=== PATIENT | female | born 1940 | race Hispanic/Latino ===

== ENCOUNTER 2018-07-28 08:07 | Day surgery (SDC) | payer MEDICARE ==
[2018-07-28] MEDS ORDERED: SUBLIMAZE IV NR (08:31)
[2018-07-28] MEDS ORDERED: VERSED IV NR (08:31)
[2018-07-28] MEDS ORDERED: NACL 0.9% 500 ML 500 ML IV SCH (09:00)
[2018-07-28] MEDS ORDERED: HURRICAINE ONE 20% TOPICAL SPRAY MM NR (09:00)
--- NOTE | 2018-07-28 10:37 | Short Stay Summary ---
Short Stay Documentation Date of service: 07/28/18 - History H&P: obtained from office - Allergies and Medications Current Medications: Allergies No Known Allergies Allergy (Unverified 07/28/18 08:05) Home Medications Medication Instructions Recorded Confirmed Last Taken Type Aspirin [Adult Aspirin] 81 mg PO DAILY 07/28/18 07/28/18 07/27/18 History I TAB Meloxicam 15 mg PO DAILY 07/28/18 07/28/18 07/27/18 History 1 TAB Metoprolol [Lopressor TAB] 25 mg PO BID 07/28/18 07/28/18 07/27/18 History 1 tab Olmesartan/Hydrochlorothiazide 20 mg PO DAILY 07/28/18 07/28/18 07/27/18 History [Olmesartan-Hctz 20-12.5 mg Tab] 1 tab Simvastatin 20 mg PO DAILY 07/28/18 07/28/18 07/27/18 History 1 tab glipiZIDE XL [Glucotrol Xl] 2.5 mg PO DAILY 07/28/18 07/28/18 07/27/18 History 1 tab Active Medications Fentanyl (Sublimaze) 100 mcg IV ONCE NR Stop: 07/28/18 12:00 Sodium Chloride (Nacl 0.9% 500 Ml) 500 mls @ 50 mls/hr IV DIRECT SHELLI Last Admin: 07/28/18 09:55 Dose: 50 mls/hr Documented by: - Physical exam General appearance: no acute distress Integumentary: no rash HEENT: Atraumatic Lungs: Clear to auscultation Breasts: deferred Heart: Regular rate, Murmur Gastrointestinal: normal, normoactive bowel sounds Female Genitourinary: deferred Rectal Exam: deferred Extremities: no ischemia - Brief post op/procedure progress note Date of procedure: 07/28/18 Pre-op diagnosis: Aortic stenosis Post-op diagnosis: same Procedure: JENNI Anesthesia: MAC Findings: Severe Surgeon: LUPIS PEREZ Estimated blood loss: none Pathology: none Condition: stable - Hospital course Hospital course: Uneventful - Disposition Condition at discharge: Good Disposition: DC-01 TO HOME OR SELFCARE Short Stay Discharge Plan Activity: advance as tolerated Weight Bearing Status: Weight Bear as Tolerated Diet: low fat, low cholesterol, low salt Follow up with: ANG APARICIO MD [Primary Care Provider] - 7 Days
[2018-07-28 12:08] VITALS: BP 106/50
== END 2018-07-28 12:50 | disposition home or self-care (01) ==
LOC: CATHLABREC 08:07 → EDSTATUS 08:08 → CATHLABREC 12:50
PROVIDERS: ATTEND Internal Medicine
DX: I35.2 Nonrheumatic aortic (valve) stenosis with insufficiency (principal); I70.0 Atherosclerosis of aorta; R06.02 Shortness of breath; I10 Essential (primary) hypertension; M19.90 Unspecified osteoarthritis, unspecified site; F41.9 Anxiety disorder, unspecified; J44.9 Chronic obstructive pulmonary disease, unspecified; Z98.890 Other specified postprocedural states; Z79.82 Long term (current) use of aspirin; Z79.899 Other long term (current) drug therapy; Z87.891 Personal history of nicotine dependence; Z95.1 Presence of aortocoronary bypass graft; Z82.49 Family history of ischemic heart disease and other diseases of the circulatory system
CPT/HCPCS: 93312; 93320; 93325; J2250; J3010; J7040

== ENCOUNTER 2019-01-16 06:54 | Observation (INO) | payer MEDICARE ==
[2019-01-16] MEDS ORDERED: ECOTRIN PO NR (07:14)
[2019-01-16 07:48] LABS: Basophils # (Auto) 0.1 K/mm3 (0.0-0.1); Basophils % (Auto) 1.2 % (0.0-1.8); Eosinophils # (Auto) 0.5 K/mm3 (0.0-0.4); Hematocrit 36.1 % (30.3-42.9); Hemoglobin 12.1 gm/dl (10.1-14.3); Lymphocytes # (Auto) 1.5 K/mm3 (1.2-5.4); Lymphocytes % (Auto) 15.7 % (13.4-35.0); Mean Corpuscular HGB Conc 34 % (30-34); Mean Corpuscular Volume 90 fl (79-97); Monocytes # (Auto) 0.7 K/mm3 (0.0-0.8); Monocytes % (Auto) 6.7 % (0.0-7.3); Platelet Count 278 K/mm3 (140-440); Red Blood Count 4.03 M/mm3 (3.65-5.03); Red Cell Distribution Width 14.2 % (13.2-15.2)
[2019-01-16 07:59] LABS: INR 1.03 (0.87-1.13)
[2019-01-16] MEDS ORDERED: NACL 0.9% 500 ML 500 ML IV SCH (08:00)
[2019-01-16 08:02] LABS: Calcium 9.3 mg/dL (8.4-10.2)
[2019-01-16] MEDS ORDERED: TYLENOL PO PRN (10:13)
[2019-01-16] MEDS ORDERED: AMBIEN PO PRN (10:13)
[2019-01-16] MEDS ORDERED: MILK OF MAGNESIA PO PRN (10:13)
[2019-01-16] MEDS ORDERED: SODIUM CHLORIDE FLUSH SYRINGE 10 ML IV PRN (10:13)
[2019-01-16] MEDS ORDERED: ZOFRAN IV PRN (10:13)
[2019-01-16] MEDS ORDERED: ALUM-MAG HYDROX-SIMETH 200-200-20MG/5ML PO PRN (10:13)
--- NOTE | 2019-01-16 10:25 | Event Note ---
Date: 01/16/19 78-year-old woman with coronary artery disease, status post coronary bypass surgery in 2006 at [facility]. Her immediate records report a 4- vessel coronary bypass, while the patient has son have a recollection of a three-vessel coronary bypass. In addition to her coronary disease, she was recently diagnosed with calcific aortic stenosis on an outpatient echocardiogram. She was referred for cardiac catheterization for further assessment of her coronary disease and aortic valve stenosis. On presentation outpatient procedure, we found abnormal renal function with a creatinine of 1.5. In addition, the patient had inadvertently consumed a light breakfast prior to arrival for her procedure. Recommendations: We will defer the patient's contrast angiography due to the elevated creatinine as well as the antecedent food ingestion. The patient will be admitted overnight for intravenous hydration with normal saline, a recheck of her creatinine tomorrow morning prior to contrast angiography. Nothing by mouth after midnight tonight.
[2019-01-16] MEDS: HumuLIN R SUB-Q SCH ×3 (11:24→23:33)
[2019-01-16] MEDS: NACL 0.9% 1000 ML 1,000 ML IV SCH (15:05)
[2019-01-16] MEDS ORDERED: PRAVACHOL PO SCH (22:00)
[2019-01-16] MEDS: PEPCID PO SCH (22:14)
[2019-01-16] MEDS: LOPRESSOR PO SCH (22:14)
[2019-01-16] MEDS: SENOKOT PO SCH (22:14)
[2019-01-16] MEDS: COLACE PO SCH (22:14)
[2019-01-16] MEDS: SODIUM CHLORIDE FLUSH SYRINGE 10 ML IV SCH (22:15)
[2019-01-17] MEDS: NACL 0.9% 1000 ML 1,000 ML IV SCH ×2 (03:20→10:15)
[2019-01-17 06:35] LABS: Calcium 8.8 mg/dL (8.4-10.2)
[2019-01-17] MEDS: HumuLIN R SUB-Q SCH ×2 (09:11→13:23)
[2019-01-17] MEDS ORDERED: XYLOCAINE 2% INFILTRATI ONE ×2 (09:57→09:58)
[2019-01-17] MEDS ORDERED: HEPARIN/NS 5000 UNIT/500ML(CATH LAB) 1,000 ML IR ONE (09:57)
[2019-01-17] MEDS ORDERED: NITROGLYCERIN SYRINGE 0 ML ONE (09:57)
[2019-01-17] MEDS ORDERED: HEPARIN 10,000 UNITS/10 ML ONE (09:57)
[2019-01-17] MEDS ORDERED: SUBLIMAZE ONE (09:58)
[2019-01-17] MEDS ORDERED: VERSED ONE (09:58)
[2019-01-17] MEDS ORDERED: HCTZ PO SCH (10:00)
[2019-01-17] MEDS ORDERED: NON-FORMULARY (Olmesartan/Hydrochlorothiazide [Benicar Hct 20-12.5 Mg] 1 TAB) PO SCH (10:00)
[2019-01-17] MEDS ORDERED: DESYREL PO SCH (10:00)
[2019-01-17] MEDS ORDERED: NON-FORMULARY (Simvastatin [Simvastatin] 20 MG) PO SCH (10:00)
[2019-01-17] MEDS ORDERED: GLUCOTROL XL PO SCH (10:00)
[2019-01-17] MEDS ORDERED: COZAAR PO SCH (10:00)
[2019-01-17] MEDS ORDERED: HALFPRIN EC PO SCH (10:00)
[2019-01-17] MEDS ORDERED: NACL 0.9% 1000 ML 1,000 ML IV SCH (11:00)
[2019-01-17] MEDS ORDERED: ULTRAM PO PRN (11:00)
[2019-01-17] MEDS ORDERED: NORCO 5/325 PO PRN (11:30)
--- NOTE | 2019-01-17 12:38 | Cardiac Catherization Report ---
ATTENDING PHYSICIAN: Neri Francis MD PROCEDURES: 1. Left heart catheterization with vein grafts. 2. Left ventriculogram via hand injection. 3. Measurement of aortic valve gradient utilizing [place] catheter. INDICATIONS FOR PROCEDURE: The patient is a 78-year-old female with a past medical history significant for coronary artery disease, status post 3-vessel bypass, presenting for evaluation of aortic stenosis. COMPLICATIONS: None. ESTIMATED BLOOD LOSS: Less than 30 mL. ESTIMATED CONTRAST USE: 100 mL. PROCEDURE IN DETAIL: The patient was brought to the cardiac catheterization lab in usual fasting state. The patient was prepped and draped in the usual sterile fashion. A 10 mL of 1% lidocaine were injected around the right common femoral vessels and a 6-Thai sheath was placed via modified Seldinger technique. Next, the JL4 and JR4 diagnostic catheters were advanced over the wire, engaged into the respective arteries and angiography was performed in multiple views. The JR4 catheter was utilized to perform angiography of the saphenous venous grafts as well as the GOMEZ graft. Next, a Denzel catheter was advanced over the wire across the aortic valve into left ventricle. Left ventriculogram was performed via hand injection and gradient was measured across the aortic valve utilizing 2 transducers. Catheter was then removed over the wire. Hemostasis was gained via manual compression after the sheath was removed. RESULTS: Left main coronary artery is a moderate caliber vessel with moderate disease throughout and a 70% maximal stenosis. The left main coronary artery bifurcates into the left anterior descending and left circumflex coronary arteries. The left anterior descending coronary artery is a moderate caliber vessel with mild diffuse disease. Competitive flow is seen within the left anterior descending coronary artery. The proximal LAD also shows a proximal 50% stenosis. The left circumflex coronary artery is a small caliber nondominant vessel. The body of the left circumflex coronary artery shows mild to moderate diffuse disease. The first obtuse marginal branch is subtotally occluded and filled via a patent saphenous venous graft. The right coronary artery is a small caliber dominant vessel that has severe diffuse disease from the proximal to the distal segment. The right coronary artery is filled via a patent right coronary artery graft. The distal aspect of the right coronary artery and the PDA and posterolateral branches show mild to moderate diffuse disease. Saphenous venous graft to obtuse marginal 1 is patent. Saphenous graft to the posterior descending coronary artery is patent and the GOMEZ to the LAD graft is patent. Left ventriculogram showed an ejection fraction of 50%. The aortic pressure measured 147/61 mmHg, left ventricular pressure measures 166/6 mmHg. The end-diastolic pressure from the left ventricle was 17 mmHg. The gradient across the aortic valve was measured at 25.1 mmHg. CONCLUSIONS: Multivessel coronary artery disease in a right dominant system with patent SVG to RCA, patent SVG to obtuse marginal 1, and patent GOMEZ to LAD. Normal left ventricular function with ejection fraction 60%. RECOMMENDATIONS: Recommend continuing maximal medical therapy and aggressive risk factor modification. JOB# [id number] /PAPO
--- NOTE | 2019-01-17 12:51 | Progress Note ---
Assessment and Plan CAD s/p CABG Echo suggestive of aortic stenosis HTN [facility] today Subjective Date of service: 01/17/19 Interval history: No acute events. Resting comfortably. No chest pain or SOB. Objective Vital Signs Temp Pulse Resp BP BP Pulse Ox 01/17/19 07:38 98.1 F 57 L 18 127/47 91 01/17/19 03:03 98.3 F 68 18 130/57 96 01/16/19 20:10 89 100 01/16/19 19:50 97.8 F 20 122/61 01/16/19 13:28 98.6 F 69 18 127/56 93 - Labs and Meds Comprehensive Metabolic Panel 01/17/19 Range/Units 05:21 Sodium 140 (137-145) mmol/L Potassium 4.9 (3.6-5.0) mmol/L Chloride 103.4 (98-107) mmol/L Carbon Dioxide 25 (22-30) mmol/L BUN 21 H (7-17) mg/dL Creatinine 1.1 (0.7-1.2) mg/dL Glucose 98 (65-100) mg/dL Calcium 8.8 (8.4-10.2) mg/dL
--- NOTE | 2019-01-17 12:55 | Short Stay Summary ---
<NATHAN CHANDRA - Last Filed: 01/17/19 12:51> Short Stay Documentation Date of service: 01/17/19 - History H&P: obtained from office - Allergies and Medications Current Medications: Allergies No Known Allergies Allergy (Unverified 07/28/18 08:05) Home Medications Medication Instructions Recorded Confirmed Last Taken Type Aspirin [Adult Aspirin] 81 mg PO DAILY 07/28/18 01/16/19 01/16/19 05:30 History 81mg Meloxicam 15 mg PO DAILY 07/28/18 01/16/19 01/16/19 05:30 History Metoprolol [Lopressor TAB] 25 mg PO BID 07/28/18 01/16/19 01/16/19 05:30 History Simvastatin 20 mg PO DAILY 07/28/18 01/16/19 01/16/19 05:30 History 20mg glipiZIDE XL [Glucotrol Xl] 2.5 mg PO DAILY 07/28/18 01/16/19 01/15/19 History 2.5mg Gabapentin 100 mg PO DAILY 01/16/19 01/16/19 01/15/19 22:00 History Olmesartan/Hydrochlorothiazide 1 tab PO DAILY 01/16/19 01/16/19 01/16/19 05:30 History [Benicar HCT 20-12.5 mg] traZODone [Desyrel] 50 mg PO DAILY 01/16/19 01/16/19 01/15/19 History 50mg Active Medications Acetaminophen (Tylenol) 650 mg PO Q4H PRN PRN Reason: Fever >100.5/LEGGETT Acetaminophen/Hydrocodone Bitart ([place] 5/325) 1 each PO Q4H PRN PRN Reason: Pain, Moderate (4-6) Al Hydrox/Mg Hydrox/Simethicone (Alum-Mag Hydrox-Simeth [id number]/5ml) 30 ml PO Q4H PRN PRN Reason: Indigestion Aspirin (Halfprin Ec) 81 mg PO DAILY SHELLI Docusate Sodium (Colace) 100 mg PO BID [facility] Last Admin: 01/16/19 22:14 Dose: 100 mg Documented by: Famotidine (Pepcid) 20 mg PO BID SHELLI Last Admin: 01/16/19 22:14 Dose: 20 mg Documented by: Glipizide (Glucotrol Xl) 2.5 mg PO DAILY [facility] Hydrochlorothiazide (Hctz) 12.5 mg PO QDAY [facility] Sodium Chloride (Nacl 0.9% 1000 Ml) 1,000 mls @ 75 mls/hr IV DIRECT [facility] Insulin Human Regular (Humulin R) 0 units SUB-Q ACHS [facility]; Protocol Last Admin: 01/17/19 09:11 Dose: Not Given Documented by: Losartan Potassium (Cozaar) 50 mg PO QDAY [facility] Magnesium Hydroxide (Milk Of Magnesia) 30 ml PO Q4H PRN PRN Reason: Constipation Metoprolol Tartrate (Lopressor) 25 mg PO BID [facility] Last Admin: 01/16/19 22:14 Dose: 25 mg Documented by: Ondansetron HCl (Zofran) 4 mg IV Q8H PRN PRN Reason: Nausea And Vomiting Pravastatin Sodium (Pravachol) 40 mg PO QHS [facility] Last Admin: 01/16/19 22:14 Dose: 40 mg Documented by: Senna (Senokot) 8.6 mg PO Q12HR [facility] Last Admin: 01/16/19 22:14 Dose: 8.6 mg Documented by: Sodium Chloride (Sodium Chloride Flush Syringe 10 Ml) 10 ml IV BID [facility] Last Admin: 01/16/19 22:15 Dose: 10 ml Documented by: Sodium Chloride (Sodium Chloride Flush Syringe 10 Ml) 10 ml IV PRN PRN PRN Reason: LINE FLUSH Tramadol HCl (Ultram) 50 mg PO Q4H PRN PRN Reason: Pain, Mild (1-3) Trazodone HCl (Desyrel) 50 mg PO DAILY [facility] Zolpidem Tartrate (Ambien) 5 mg PO QHS PRN PRN Reason: Insomnia Last Admin: 01/16/19 22:25 Dose: 5 mg Documented by: - Physical exam General appearance: no acute distress HEENT: PERRLA Lungs: Clear to auscultation Heart: Regular rate, Normal S1, Normal S2 - Hospital course Hospital course: 78-year-old woman with coronary artery disease, status post coronary bypass surgery in 2006 at [facility]. Her immediate records report a 4- vessel coronary bypass, while the patient has son have a recollection of a three-vessel coronary bypass. In addition to her coronary disease, she was recently diagnosed with calcific aortic stenosis on an outpatient echocardiogram. She was referred for cardiac catheterization for further assessment of her coronary disease and aortic valve stenosis. On presentation outpatient procedure, we found abnormal renal function with a creatinine of 1.5. Angiography was deferred due to the elevated creatinine as well as the antecedent food ingestion. The patient will be admitted overnight for intravenous hydration with normal saline. A recheck of her creatinine today is 1.1 and patient underwent coronary angiography. Please refer to report for results. Patient will discharge home, 6 hours post cardiac cath. Patient will follow up with her primary decorating inspector, Dr Jack, as previously scheduled. - Disposition Condition at discharge: Good Disposition: DC-01 TO HOME OR SELFCARE Short Stay Discharge Plan Activity: advance as tolerated Weight Bearing Status: Full Weight Bearing Diet: low fat, low cholesterol, low salt, diabetic Wound: keep clean and dry Follow up with: ANG APARICIO MD [Primary Care Provider] - 7 Days COLTON JACK MD [Staff Physician] - 7 Days <IGNACIA XAVIER - Last Filed: 01/17/19 13:32> Short Stay Documentation - Allergies and Medications Current Medications: Allergies No Known Allergies Allergy (Unverified 07/28/18 08:05) Home Medications Medication Instructions Recorded Confirmed Last Taken Type Aspirin [Adult Aspirin] 81 mg PO DAILY 07/28/18 01/16/19 01/16/19 05:30 History 81mg Meloxicam 15 mg PO DAILY 07/28/18 01/16/19 01/16/19 05:30 History Metoprolol [Lopressor TAB] 25 mg PO BID 07/28/18 01/16/19 01/16/19 05:30 History Simvastatin 20 mg PO DAILY 07/28/18 01/16/19 01/16/19 05:30 History 20mg glipiZIDE XL [Glucotrol Xl] 2.5 mg PO DAILY 07/28/18 01/16/19 01/15/19 History 2.5mg Gabapentin 100 mg PO DAILY 01/16/19 01/16/19 01/15/19 22:00 History Olmesartan/Hydrochlorothiazide 1 tab PO DAILY 01/16/19 01/16/19 01/16/19 05:30 History [Benicar HCT 20-12.5 mg] traZODone [Desyrel] 50 mg PO DAILY 01/16/19 01/16/1919 History 50mg Active Medications Acetaminophen (Tylenol) 650 mg PO Q4H PRN PRN Reason: Fever >100.5/LEGGETT Acetaminophen/Hydrocodone Bitart ([place] 5/325) 1 each PO Q4H PRN PRN Reason: Pain, Moderate (4-6) Al Hydrox/Mg Hydrox/Simethicone (Alum-Mag Hydrox-Simeth [phone]/5ml) 30 ml PO Q4H PRN PRN Reason: Indigestion Aspirin (Halfprin Ec) 81 mg PO DAILY [facility] Last Admin: 01/17/19 13:18 Dose: 81 mg Documented by: Docusate Sodium (Colace) 100 mg PO BID [facility] Last Admin: 01/17/19 13:17 Dose: 100 mg Documented by: Famotidine (Pepcid) 20 mg PO BID [facility] Last Admin: 01/17/19 13:17 Dose: 20 mg Documented by: Glipizide (Glucotrol Xl) 2.5 mg PO DAILY [facility] Last Admin: 01/17/19 13:21 Dose: 2.5 mg Documented by: Hydrochlorothiazide (Hctz) 12.5 mg PO QDAY [facility] Last Admin: 01/17/19 13:17 Dose: 12.5 mg Documented by: Sodium Chloride (Nacl 0.9% 1000 Ml) 1,000 mls @ 75 mls/hr IV DIRECT [facility] Insulin Human Regular (Humulin R) 0 units SUB-Q ACHS [facility]; Protocol Last Admin: 01/17/19 13:23 Dose: Not Given Documented by: Losartan Potassium (Cozaar) 50 mg PO QDAY [facility] Last Admin: 01/17/19 13:17 Dose: 50 mg Documented by: Magnesium Hydroxide (Milk Of Magnesia) 30 ml PO Q4H PRN PRN Reason: Constipation Metoprolol Tartrate (Lopressor) 25 mg PO BID [facility] Last Admin: 01/17/19 13:17 Dose: 25 mg Documented by: Ondansetron HCl (Zofran) 4 mg IV Q8H PRN PRN Reason: Nausea And Vomiting Pravastatin Sodium (Pravachol) 40 mg PO QHS [facility] Last Admin: 01/16/19 22:14 Dose: 40 mg Documented by: Senna (Senokot) 8.6 mg PO Q12HR [facility] Last Admin: 01/17/19 13:17 Dose: 8.6 mg Documented by: Sodium Chloride (Sodium Chloride Flush Syringe 10 Ml) 10 ml IV BID [facility] Last Admin: 01/17/19 13:16 Dose: 10 ml Documented by: Sodium Chloride (Sodium Chloride Flush Syringe 10 Ml) 10 ml IV PRN PRN PRN Reason: LINE FLUSH Tramadol HCl (Ultram) 50 mg PO Q4H PRN PRN Reason: Pain, Mild (1-3) Trazodone HCl (Desyrel) 50 mg PO DAILY [facility] Last Admin: 01/17/19 13:21 Dose: 50 mg Documented by: Zolpidem Tartrate (Ambien) 5 mg PO QHS PRN PRN Reason: Insomnia Last Admin: 01/16/19 22:25 Dose: 5 mg Documented by:
[2019-01-17] MEDS: SODIUM CHLORIDE FLUSH SYRINGE 10 ML IV SCH (13:16)
[2019-01-17] MEDS: PEPCID PO SCH (13:17)
[2019-01-17] MEDS: SENOKOT PO SCH (13:17)
[2019-01-17] MEDS: COLACE PO SCH (13:17)
[2019-01-17] MEDS: LOPRESSOR PO SCH (13:17)
[2019-01-17 14:25] VITALS: BP 142/62
== END 2019-01-17 17:35 | disposition home or self-care (01) ==
LOC: CATHLABREC 06:54 → 2B-ACE 10:13
PROVIDERS: ADMIT Internal Medicine Cardiovascular Disease; ATTEND Internal Medicine Cardiovascular Disease
DX: I25.10 Atherosclerotic heart disease of native coronary artery without angina pectoris (principal); I35.0 Nonrheumatic aortic (valve) stenosis; I10 Essential (primary) hypertension; Z79.82 Long term (current) use of aspirin; Z79.4 Long term (current) use of insulin; Z95.1 Presence of aortocoronary bypass graft
CPT/HCPCS: 36415; 80048; 82962; 85025; 85610; 85730; 93005; 93010; 93308; 93321; 93325; 93452; 93459; A9270; C1751; C1894; G0378; J1644; J2250; J3010; J7030; J7040; J1815; Q9967